=== PATIENT | female | born 1990 | race Caucasian/White ===

== ENCOUNTER 2023-01-10 02:54 | Emergency (ER) | payer OTHER ==
[~2023-01-10] VITALS: Ht 165.1 cm; Wt 61.0 kg
[2023-01-10 02:57] VITALS: O2SAT 99
[2023-01-10 03:00] VITALS: TEMP 97.6
[2023-01-10 03:48] LABS: BASOPHILS % 0.6 % (0.0-2.0); EOSINOPHILS % 0.7 % (0.0-5.0); HEMOGLOBIN. 12.8 g/dL (12.0-16.0); LYMPHOCYTES % 37.9 % (20.0-50.0); MEAN CORPUSCULAR HEMOGLOBIN 30.4 pg (28.0-32.0); MEAN CORPUSCULAR HGB CONC 33.8 g/dL (31.0-37.0); MEAN CORPUSCULAR VOLUME 89.9 fL (81.0-99.0); MEAN PLATELET VOLUME 7.9 fl (7.4-10.4); MONOCYTES % 8.5 % (2.0-8.0); NEUTROPHILS % 52.3 % (40.0-76.0); PLATELET 204 x1000/uL (130-400); RED BLOOD CELL COUNT 4.23 mill/uL (4.2-5.4); RED CELL DISTRIBUTION WIDTH 12.9 % (11.6-14.6); WHITE BLOOD COUNT 6.1 x1000/uL (4.5-11.0)
[2023-01-10 03:58] LABS: CHLORIDE 111 mEq/L (98-107); INDEX HEMOLYSI 2 (1-3); INDEX ICTERIC 1 (1-4); INDEX LIPEMIC 1 (1-3); POTASSIUM 3.3 mEq/L (3.5-5.1); SODIUM 141 mEq/L (136-145)
[2023-01-10] MEDS ORDERED: SODIUM CHLORIDE 0.9% 1,000 ML IV ONE (04:00)
[2023-01-10 04:05] LABS: HCG SCREEN NEGATIVE
[2023-01-10 04:06] LABS: ALANINE AMINOTRANSFERASE 14 IU/L (13-61); ALBUMIN 3.7 g/dL (3.4-5.0); ASPARTATE AMINOTRANSFERASE 18 IU/L (15-37); BILIRUBIN TOTAL 0.2 mg/dL (0.1-1.0); CARBON DIOXIDE 25 mEq/L (21-32); CREATININE 0.7 mg/dL (0.6-1.3); ETHANOL BLOOD 56 mg/dL (<10); GLUCOSE 92 mg/dL (70-105); PROTEIN TOTAL 6.9 g/dL (6.0-8.3); UREA NITROGEN BLOOD 20 mg/dL (7-21)
[2023-01-10 04:44] LABS: *AMPHETAMINES SCREEN URINE NEGATIVE (NEGATIVE); *BARBITURATES SCREEN URINE NEGATIVE (NEGATIVE); *BENZODIAZEPINES SCREEN URINE NEGATIVE (NEGATIVE); *COCAINE SCREEN URINE NEGATIVE (NEGATIVE); CANNABINOID URINE SCREEN NEGATIVE (NEGATIVE); ECSTASY MDMA SCREEN URINE NEGATIVE (NEGATIVE); METHADONE URINE SCREEN NEGATIVE (NEGATIVE); OPIATES URINE SCREEN NEGATIVE (NEGATIVE); PHENCYCLIDINE URINE SCREEN NEGATIVE (NEGATIVE)
[2023-01-10] MEDS ORDERED: POTASSIUM CHLORIDE 20MEQ/PACKET PO NR (06:15)
[2023-01-10 07:55] VITALS: BP 95/55; PULSE 67; RESP 13
== END 2023-01-10 07:58 | disposition home or self-care (01) ==
LOC: ER 02:54
DX: F10.129 Alcohol abuse with intoxication, unspecified (principal); Y90.0 Blood alcohol level of less than 20 mg/100 ml
CPT/HCPCS: 80053; 80305; 80320; 82962; 84703; 85025; 36415; 96360; 99283; J7030; Z7610; G0480